=== PATIENT | male | born 1965 | race Caucasian/White ===

== ENCOUNTER 2016-12-02 08:55 | Day surgery (SDC) | payer BC ==
[~2016-12-02] VITALS: Ht 185.4 cm; Wt 129.3 kg
[~2016-12-02 08:55] MED LIST: ALLOPURINOL300 MG PO; ASPIRIN EC81 MG PO; FLOMAX0.4 MG PO; LISINOPRIL-HCT1 EACH PO; MELOXICAM15 MG PO; NIACIN500 M1 PO; PERCOCET 7.5-31 EACH PO; PROZAC20 MG PO; TRAMADOL HCL50 MG PO
--- NOTE | 2016-12-02 11:25 | NUR ---
12/02/16 1125 Kandace Membreno 1118 PATIENT ARRIVES AWAKE, BUT DROWSY. FOLLOWS COMMANDS. 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 NC AT 3 LITERS.
[2016-12-02] MEDS ORDERED: OXYCODON-ACETA1 EAC2 PO (11:34)
[2016-12-02] MEDS ORDERED: IBUPROFEN600 MG PO (11:34)
[2016-12-02] MEDS ORDERED: MAPAP325 MG PO (11:35)
--- NOTE | 2016-12-20 10:32 | OR ---
[facility] [address], [place] [address] Signed PREOPERATIVE DIAGNOSE Left carpal tunnel syndrome. Probable obstructive sleep apnea. POSTOPERATIVE DIAGNOSES Left carpal tunnel syndrome. Probable obstructive sleep apnea. PROCEDURE: Left carpal tunnel release. SURGEON: Jon Maurice MD. ANESTHESIA Alexander block with sedation (Natanael Grey CRNA) and local 10 cc of 0.25% Marcaine with epinephrine. INDICATION This 51-year-old white man is a patient of Dr. David Smart. He is referred for left carpal tunnel syndrome symptoms. He is accompanied by his fiancee, Mikala, who works as racetrack steward at the hospital. He has undergone right carpal tunnel release by Dr. Michaud with endoscopic approach in the past. He previously had mild symptoms on the left, but now has symptoms much more significant on the left . 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 He is rather large, has sleep apnea syndrome and hypertension and is admitted at this time to undergo a left carpal tunnel release. He understands that this is significant other, the risks of bleeding, infection, nerve injury, failure to cure his symptoms and other unforeseen complications related to surgery and wishes to proceed. FINDINGS Patient certainly does have sleep apnea syndrome based on airway management during the course of the procedure. He ultimately required a nasal trumpet with his IV sedation. The Alexander block worked well. Operative findings included a very thick palmar fascia and well-developed thenar and hypothenar muscle groups, requiring slight division to encounter the transverse carpal ligament. Transverse carpal ligament was divided to the palmar fascia under direct visualization with no injury to the underlying median nerve. Division was taken more proximally to the distal wrist crease under direct visualization. The median nerve itself showed chronic inflammatory change with no other abnormalities of concern. PROCEDURE IN DETAIL The patient was brought to the operating room, placed in the supine position and given Electronically Signed By: JON MAURICE MD 12/20/16 1032 PATIENT NAME: SURJIT SOTO JR OPERATIVE REPORT DATE OF : 67 PHYSICIAN: JON MAURICE MD REPORT #: [id number] REPORT IS CONFIDENTIAL AND NOT TO BE RELEASED WITHOUT AUTHORIZATION [facility] [address], [place] [address] Signed intravenous sedation. Tourniquet was placed and using an Esmarch bandage, I personally exsanguinated the hand up to the tourniquet site. Propofol was used for sedation. Prior to injection of the anesthetic for [place] block,the patient roused due to his obstructive sleep apnea, disengaging the tourniquet somewhat. He did not have excessive secretions, but clearly a plethoric hypopharynx. Table was placed into a more reverse Trendelenburg position and the hand re-exsanguinated with the Esmarch bandage and tourniquet applied. Good exsanguination was noted. The Alexander block was then administered a nasal trumpet was placed to more fully secure good air passage in his plethoric hypopharynx. The hand was then prepared with a chlorhexidine solution and draped sterilely . The hand was placed in extended position with the lead finger retractors. Incision was made ulnar to the thenar crease of the skin. Dissection carried through the thick palmar subcutaneous tissue encountering the palmaris longus tendon, which was incised along its fibers, encountering both thenar and hypothenar muscle bundles, which showed intercalated toward the midline. These were divided carefully and capturing the transverse carpal ligament, which was then incised a bit more. A hemostat was placed beneath it distally and under direct visualization transection was taken down to the palmar fascia. Hemostat was replaced more proximally and division undertaken with a 15 blade and ultimately tenotomy scissors up to the transverse wrist crease. Examination of the underlying nerve showed chronic inflammatory changes with no sign of neoplasm or other problem. The muscular fibers that were divided were secured with needlepoint electrocautery. A 10 cc of 0.25% Marcaine with epinephrine was injected locally. The skin was closed with interrupted 2-0 nylon suture. A Xeroform dressing was applied as a small amount of gauze, a Flexicon wrapped, and a cock-up wrist splint and then an Taiwo wrap. Pressure was applied to the operative site and the tourniquet was taken down. The tourniquet time in total was 25 minutes. Pressure was applied to the operative site until rubor returned and receded. He was transferred to a stretcher and taken with less sedation to the recovery area. He tolerated procedure well. Blood loss was minimal. Complications none. Sponge, needle, and instrument counts were reported as correct x3. MD ABELARDO Carlson/Jose Electronically Signed By: JON MAURICE MD 12/20/16 1032 PATIENT NAME: SURJIT SOTO JR OPERATIVE REPORT DATE OF : 67 PHYSICIAN: JON MAURICE MD REPORT #: [id number] REPORT IS CONFIDENTIAL AND NOT TO BE RELEASED WITHOUT AUTHORIZATION [facility] [address] [place] [address] [place], [place] [address] Signed /[id number] cc: Dr. David Smart Electronically Signed By: JON MAURICE MD 12/20/16 1032 PATIENT NAME: SURJIT SOTO JR OPERATIVE REPORT DATE OF : 67 PHYSICIAN: JON MAURICE MD REPORT #: [id number] REPORT IS CONFIDENTIAL AND NOT TO BE RELEASED WITHOUT AUTHORIZATION
== END 2016-12-02 12:05 | disposition home or self-care (01) ==
LOC: DS 08:55 → OPS 08:55 → DS 10:15 → OPS 12:05
PROVIDERS: Surgery
PROC: 01N50ZZ Release Median Nerve, Open Approach (ICD-10-PCS; principal; 2016-12-02 10:15)
DX: G56.02 Carpal tunnel syndrome, left upper limb (principal); E66.01 Morbid (severe) obesity due to excess calories; G47.33 Obstructive sleep apnea (adult) (pediatric); F32.9 Major depressive disorder, single episode, unspecified; I10 Essential (primary) hypertension; M19.90 Unspecified osteoarthritis, unspecified site; Z68.37 Body mass index [BMI] 37.0-37.9, adult; Z88.0 Allergy status to penicillin; Z88.5 Allergy status to narcotic agent; Z98.890 Other specified postprocedural states; Z79.899 Other long term (current) drug therapy
CPT/HCPCS: 01810; J0690; J2704; J3010